=== PATIENT | male | born 1970 | race Caucasian/White ===

== ENCOUNTER 2019-10-29 19:13 | Emergency (ER) | payer OTHER ==
[~2019-10-29] VITALS: Ht 177.8 cm; Wt 82.3 kg
[2019-10-29] MEDS ORDERED: HYDROCODONE/ACETAMINOPHEN 5-325 MG TABLET PO ONE (20:15)
[2019-10-29 21:51] VITALS: BP 120/60
== END 2019-10-29 21:57 | disposition home or self-care (01) ==
LOC: EMS 19:15
DX: S20.211A Contusion of right front wall of thorax, initial encounter (principal); F15.90 Other stimulant use, unspecified, uncomplicated; F17.210 Nicotine dependence, cigarettes, uncomplicated; W18.39XA Other fall on same level, initial encounter; Y93.89 Activity, other specified; Y92.89 Other specified places as the place of occurrence of the external cause; Y99.8 Other external cause status